=== PATIENT | male | born 2000 | race African-American/Black ===

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

== ENCOUNTER 2018-02-14 14:14 | Emergency (ER) | payer MEDICAID, OTHER ==
[~2018-02-14] VITALS: Ht 182.9 cm; Wt 80.3 kg
[~2018-02-14 14:14] MED LIST changes: +ACETAMINOPHEN-1 EAC1 ORAL; +GENTAMICIN SUL3.5 GM OP
[2018-02-14] MEDS ORDERED: NKM (14:23)
[2018-02-14] MEDS ORDERED: Tetanus/Diptheria/Pertussis Vaccine 0.5ml Syr IM ONE (15:00)
--- NOTE | 2018-02-14 15:10 | Emergency Room Report ---
History of Present Illness General Chief Complaint: Lower Extremity Injury Source: Patient Present Illness HPI 17 YO Male presents to the ED c/o 11/26 in severity localized right knee pain x 2 weeks. pt. is worried may have infection. denies fevers, chills or inability to move the joint. tetanus not UTD. no erythema, abrasions with pus, also lac to the right palm with some surrounding erythema. Denies numbness tingling or loss of sensation or gross motor movements of the extremities, incontinence of bowel or bladder. Denies CP, Palpitations, LOC, AMS, dizziness, Changes in Vision, weakness or a sudden severe headache. Allergies: Coded Allergies: No Known Allergies (Unverified , 04/24/15) Patient History Past Medical History: see triage record Past Surgical History: none Pertinent Family History: none Reviewed Nursing Documentation: PMH: Agreed; PSxH: Agreed Nursing Documentation-PMH Past Medical History: No Stated History Review of Systems All Other Systems: negative except mentioned in HPI Physical Exam Vital Signs Date Time Temp Pulse Resp B/P (MAP) Pulse Ox O2 Delivery O2 Flow Rate FiO2 02/14/18 14:16 97.8 90 17 124/71 96 Room Air 97.9 Sp02 EP Interpretation: reviewed, normal General Appearance: no apparent distress, alert, GCS 15, non-toxic Head: normocephalic, atraumatic ENT: hearing grossly normal, normal voice Neck: full range of motion Respiratory: lungs clear, normal breath sounds, speaking full sentences Cardiovascular #1: regular rate, rhythm Musculoskeletal: back normal, gait/station normal, normal range of motion, other - abrasions of the anterior knee if secondary purulent infection, no evidence of septic joint at this time. the joint is not swollen, erythematous or with increased temperature to palpation, FROM. superficial soft tissues are involved only. , tender - superficial anterior ttp very mild, across abrasion. Neurologic: alert, oriented x3, responsive, motor strength/tone normal, sensory intact, normal gait, speech normal, grossly normal Psychiatric: judgement/insight normal Skin: normal color, no rash, warm/dry, well hydrated, other - abrasions of the anterior knee if secondary purulent infection, no evidence of septic joint at this time. the joint is not swollen, erythematous or with increased temperature to palpation, FROM. superficial soft tissues are involved only. , abrasions - multiple (3) anterior right knee. , and superficial laceration 1cm in length to the right palm, mild erythema, no purulent drainage. Lymphatic: no adenopathy Medical Decision Making PA Attestation Dr. Ann is my supervising physician whom pt. management has been discussed with. Diagnostic Impression: Primary Impression: Abrasions of multiple sites with infection Additional Impressions: Contusion of knee, right Qualified Codes: S80.01XA - Contusion of right knee, initial encounter Superficial laceration of hand Qualified Codes: S61.411A - Laceration without foreign body of right hand, initial encounter ER Course 17 YO Male presents to the ED c/o 11/26 in severity localized right knee pain x 2 weeks. pt. is worried may have infection. denies fevers, chills or inability to move the joint. tetanus not UTD. no erythema, abrasions with pus, also lac to the right palm with some surrounding erythema. Denies numbness tingling or loss of sensation or gross motor movements of the extremities, incontinence of bowel or bladder. Denies CP, Palpitations, LOC, AMS, dizziness, Changes in Vision, weakness or a sudden severe headache. Ddx considered but are not limited to Fracture, dislocation, contusion,Septic Joint, Cellulitis, abrasions, Sprain/Strain/Spasm Vital signs: are WNL, pt. is afebrile H&PE are most consistent with knee contusion with abrasions of the anterior knee if secondary purulent infection, no evidence of septic joint at this time. the joint is not swollen, erythematous or with increased temperature to palpation, FROM. superficial soft tissues are involved only. ORDERS: X-ray Right knee complete 3 views - negative for fx, Dislocation, or significant soft tissue injury ED INTERVENTIONS: - Clark wrap applied by pharmacy technology instructor. -[place] PO -Wound care. -Bacitracin applied -Tdap administered. Re-Evaluation: pt. states his pain has subsided with ED interventions DISCHARGE: At this time pt. is stable for d/c to home. Will provide printed patient care instructions, and any necessary prescriptions. Care plan and follow up instructions have been discussed with the patient prior to discharge. Other X-Ray Diagnostic Results Other X-Ray Diagnostic Results : X-Ray ordered: Right knee # of Views/Limited Vs Complete: 3 View Indication: Pain EP Interpretation: Yes PA Xray: Interpretation reviewed, by supervising MD, and agrees with findings. Interpretation: no dislocation, no soft tissue swelling, no fractures Impression: No acute disease Electronically Signed by: Harriet Ibrahim PA-C Last Vital Signs Date Time Temp Pulse Resp B/P (MAP) Pulse Ox O2 Delivery O2 Flow Rate FiO2 02/14/18 14:16 97.8 90 17 124/71 96 Room Air 97.9 Disposition: HOME, SELF-CARE Condition: Stable Scripts Acetaminophen* (TYLENOL EXTRA STRENGTH*) 500 Mg Tablet 500 MG ORAL Q6H, #20 TAB 0 Refills Prov: Harriet Ibrahim 02/14/18 Mupirocin* (MUPIROCIN*) 22 Gm Oint...g. 1 APPLIC TOPIC THREE TIMES A DAY, #22 GM Prov: Harriet Ibrahim 02/14/18 Trimethoprim/Sulfamethoxazole 160/800* (BACTRIM DS TABLET*) 1 Each Tablet 1 TAB ORAL TWICE A DAY for 10 Days, #20 TAB Prov: Harriet Ibrahim 02/14/18 Cephalexin* (KEFLEX*) 500 Mg Capsule 500 MG ORAL EVERY 12 HOURS for 10 Days, #20 CAP 0 Refills Prov: Harriet Ibrahim 02/14/18 Patient Instructions: Abrasion, [id number], Contusion, [id number] Additional Instructions: Take medications as directed. Follow up with a Primary Care Provider in 3-5 days, even if your symptoms have resolved. --Please review list of primary care clinics, if you do not already have a primary care provider Return sooner to ED if new symptoms occur, or current symptoms become worse. - Please note that this Emergency Department Report was dictated using Celltick Technologiesdirector of undergraduate admissions technology software, occasionally this can lead to erroneous entry secondary to interpretation by the dictation equipment. Harriet Ibrahim Feb 14, 2018 15:10
[2018-02-14] MEDS ORDERED: Bacitracin Oint UD TOPIC ONE (15:15)
[2018-02-14] MEDS ORDERED: Norco 5mg/325mg tab ORAL ONE (15:15)
[2018-02-14] MEDS ORDERED: CEPHALEXIN500 MG ORAL (15:53)
[2018-02-14] MEDS ORDERED: MUPIROCIN22 GM TOPIC (15:53)
[2018-02-14] MEDS ORDERED: BACTRIM DS TAB1 EAC1 ORAL (15:53)
[2018-02-14] MEDS ORDERED: TYLENOL EXTRA500 MG ORAL (15:53)
[2018-02-14 16:01] VITALS: BP 124/71
--- NOTE | 2018-02-14 16:33 | Diagnostic Imaging Report ---
Indication: Knee pain Technique: 3 views of the right knee Comparison: None Findings: No acute fractures. No dislocations. The joint spaces are preserved Impression: Negative
== END 2018-02-14 16:02 | disposition home or self-care (01) ==
LOC: EMR 16:00
DX: S80.211A Abrasion, right knee, initial encounter (principal); S61.411A Laceration without foreign body of right hand, initial encounter; S80.01XA Contusion of right knee, initial encounter; X58.XXXA Exposure to other specified factors, initial encounter; Y92.9 Unspecified place or not applicable; Z23 Encounter for immunization
CPT/HCPCS: 90471; 90715; 99284

== ENCOUNTER 2019-10-19 10:40 | Emergency (ER) | payer MEDICAID ==
[~2019-10-19] VITALS: Ht 182.9 cm; Wt 83.0 kg
[~2019-10-19 10:40] MED LIST changes: +BACTRIM DS TAB1 EAC1 ORAL; +CEPHALEXIN500 MG ORAL; +MUPIROCIN22 GM TOPIC; +TYLENOL EXTRA500 MG ORAL
[2019-10-19 10:42] VITALS: BP 133/81
--- NOTE | 2019-10-19 10:52 | NUR ---
ED Nurse Note: Pt from home walked in for STD check. Pt states last sexual intercourse was yesterday. Pt Denies penile discharge or any burning sensation. No fever or chills AAO x4, and ambulatory.
--- NOTE | 2019-10-19 11:00 | NUR ---
ED Nurse Note: Collected urine then sent.
--- NOTE | 2019-10-19 11:13 | Emergency Room Report ---
History of Present Illness General Chief Complaint: Male Urogenital Problems Source: Patient Present Illness HPI Patient had unprotected sex and now is concerned about possible chlamydia. He alleges that his contact stated that she had chlamydia. He has had no symptoms but today noticed that his urine had possibly some mucus in it. There is no dysuria, fevers, lymphadenopathy, hematuria, fevers, nausea, vomiting, diarrhea or sore throat. The patient is mainly requesting testing at this time. Patient denies medical problems. Allergies: Coded Allergies: No Known Allergies (Unverified , 04/24/15) Patient History Past Medical History: none Social History: Reports: smoking Social History Narrative With girlfriend Reviewed Nursing Documentation: PMH: Agreed; PSxH: Agreed Nursing Documentation-PMH Past Medical History: No Stated History Review of Systems Constitutional: Reports: see HPI ENT: Reports: see HPI Respiratory: Denies: shortness of breath Gastrointestinal: Reports: see HPI Genitourinary: Reports: see HPI Musculoskeletal: Denies: joint pain Skin: Denies: rash Neurological: Denies: headache Hematologic/Lymphatic: Reports: see HPI Physical Exam Vital Signs Date Time Temp Pulse Resp B/P (MAP) Pulse Ox O2 Delivery O2 Flow Rate FiO2 10/19/19 10:42 98.2 82 16 133/81 100 Room Air Sp02 EP Interpretation: reviewed, normal General Appearance: well appearing, no apparent distress, GCS 15, non-toxic Head: normocephalic Eyes: bilateral eye normal inspection, bilateral eye PERRL ENT: normal pharynx, moist mucus membranes Neck: full range of motion, supple Cardiovascular #1: regular rate, rhythm Cardiovascular #2: 2+ radial (R) Gastrointestinal: normal inspection, soft, no hernia, no rebound, scaphoid Genitourinary: no CVA tenderness, penis normal, scrotum normal Musculoskeletal: gait/station normal Neurologic: alert, oriented x3, grossly normal Psychiatric: mood/affect normal Skin: no rash, warm/dry Lymphatic: no adenopathy Medical Decision Making Diagnostic Impression: Primary Impression: Exposure to STD ER Course Patient with possible exposure to STD. Here for testing. Discussed the process with patient. Suggested treatment with Rocephin and azithromycin. Patient initially reluctant but then agrees to treatment. Discussed the need for follow-up and further testing with outpatient physician. Patient stable for outpatient observation and treatment. Laboratory Tests Test 10/19/19 10:46 Urine Color Pale yellow Urine Appearance Clear Urine pH 6 (4.5-8.0) Urine Specific [place] 1.015 (1.005-1.035) Urine Protein Negative (NEGATIVE) Urine Glucose (UA) Negative (NEGATIVE) Urine Ketones Negative (NEGATIVE) Urine Blood Negative (NEGATIVE) Urine Nitrite Negative (NEGATIVE) Urine Bilirubin Negative (NEGATIVE) Urine Urobilinogen Normal MG/DL (0.0-1.0) Urine Leukocyte Esterase Negative (NEGATIVE) Chlamydia trachomatis RNA Pending Neisseria gonorrhoeae RNA Pending Last Vital Signs Date Time Temp Pulse Resp B/P (MAP) Pulse Ox O2 Delivery O2 Flow Rate FiO2 10/19/19 12:04 98.0 77 15 128/75 96 Room Air Status: improved Disposition: HOME, SELF-CARE Condition: Improved rAnold Dover MD Oct 19, 2019 11:12
[2019-10-19] MEDS ORDERED: Lidocaine 1% MPF 10mg/ml 5ml INJ ONE (11:15)
[2019-10-19] MEDS ORDERED: Azithromycin 250mg tab ORAL ONE (11:15)
[2019-10-19 11:24] LABS: APPEARANCE,URINE CLEAR; BILIRUBIN, URINE NEGATIVE (NEGATIVE); COLOR,URINE PALE YELLOW; GLUCOSE, URINE (UA) NEGATIVE (NEGATIVE); KETONES,URINE NEGATIVE (NEGATIVE); LEUKOCYTE ESTERASE ,URINE NEGATIVE (NEGATIVE); NITRITE,URINE NEGATIVE (NEGATIVE); PH,URINE 6 (4.5-8.0); PROTEIN,URINE NEGATIVE (NEGATIVE); UROBILINOGEN,URINE NORMAL MG/DL (0.0-1.0)
[2019-10-19 12:04] VITALS: BP 128/75
--- NOTE | 2019-10-19 12:04 | NUR ---
ER DISCHARGE NOTE: Patient is cleared to be discharged per ERMD, pt is aox4, on room air, with stable vital signs. pt was given dc instructions, pt was able to verbalize understanding, pt id band removed without complications. pt is able to ambulate with steady gait. pt took all belongings and left with his girlfriend.
== END 2019-10-19 12:04 | disposition home or self-care (01) ==
LOC: EMR 11:05
DX: Z20.2 Contact with and (suspected) exposure to infections with a predominantly sexual mode of transmission (principal); F17.200 Nicotine dependence, unspecified, uncomplicated
CPT/HCPCS: 81003; 87491; 87590; 96372; 96374; 99284; J0696